=== PATIENT | male | born 1970 | race Two or more races ===

== ENCOUNTER 2018-05-22 04:52 | Inpatient (IN) | payer OTHER ==
[~2018-05-22 04:52] MED LIST: ADULT ASPIRIN81 MG PO; ATORVASTATIN CA40 MG PO; FORTAMET500 MG PO; LISINOPRIL10 MG PO; UROXATRAL10 MG PO
== END 2018-05-23 10:56 | disposition home or self-care (01) | DRG 627 ==
LOC: CIR.AMB 04:52 → O/R 11:42 → SURH 16:45
PROVIDERS: ADMIT Specialist
PROC: 0GTH0ZZ Resection of Right Thyroid Gland Lobe, Open Approach (ICD-10-PCS; principal; 2018-05-22 07:00)
DX: C73 Malignant neoplasm of thyroid gland (principal); E11.9 Type 2 diabetes mellitus without complications; I10 Essential (primary) hypertension

== ENCOUNTER → 2018-05-28 06:11 | Outpatient (CLI) | payer OTHER | END | disposition home or self-care (01) | LOC: LAB 06:11 | DX: E04.1 Nontoxic single thyroid nodule (principal); E83.51 Hypocalcemia ==

== ENCOUNTER → 2018-07-02 | Outpatient (CLI) | payer OTHER | END | disposition home or self-care (01) | LOC: NUCLEAR 12:49 | DX: C73 Malignant neoplasm of thyroid gland (principal); E89.0 Postprocedural hypothyroidism | CPT/HCPCS: 79005; A9517 ==

== ENCOUNTER → 2018-07-09 | Outpatient (CLI) | payer OTHER | END | disposition home or self-care (01) | LOC: NUCLEAR 13:55 | DX: C73 Malignant neoplasm of thyroid gland (principal); E89.0 Postprocedural hypothyroidism ==

== ENCOUNTER 2019-07-01 10:54 | Outpatient (CLI) | payer OTHER | END 2019-07-01 13:26 | disposition home or self-care (01) | LOC: NUCLEAR 10:54 | DX: C73 Malignant neoplasm of thyroid gland (principal); E89.0 Postprocedural hypothyroidism | CPT/HCPCS: 78020; 78018; A9528 ==

== ENCOUNTER 2019-09-23 10:52 | Emergency (ER) | payer OTHER ==
[~2019-09-23] VITALS: Ht 175.3 cm; Wt 127.0 kg
[2019-09-23] MEDS ORDERED: SYNTHROID125 MCG (11:01)
[2019-09-23] MEDS ORDERED: ZITHROMAX TRI-500 MG PO (14:06)
[2019-09-23] MEDS ORDERED: CORTISPORIN EAR10 M1 OPHT (14:06)
[2019-09-23] MEDS ORDERED: KETO10TA2 PO (14:16)
[2019-09-23] MEDS ORDERED: DICLOFENAC SODI50 MG PO (14:16)
== END 2019-09-23 14:19 | disposition home or self-care (01) ==
LOC: ER 10:52
DX: H92.02 Otalgia, left ear (principal); H60.8X2 Other otitis externa, left ear

== ENCOUNTER 2021-04-17 18:15 | Emergency (ER) | payer OTHER ==
[~2021-04-17] VITALS: Ht 175.3 cm; Wt 127.0 kg
[~2021-04-17 18:15] MED LIST changes: +CORTISPORIN EAR10 M1 OPHT; +DICLOFENAC SODI50 MG PO; +KETO10TA2 PO; +SYNTHROID125 MCG; +ZITHROMAX TRI-500 MG PO
== END 2021-04-17 21:35 | disposition home or self-care (01) ==
LOC: ER 18:15
DX: N23 Unspecified renal colic (principal); Z88.0 Allergy status to penicillin; Z88.8 Allergy status to other drugs, medicaments and biological substances